=== PATIENT | female | born 1970 | race Caucasian/White ===

== ENCOUNTER 2016-08-10 17:18 | Inpatient (IN) | payer OTHER ==
[~2016-08-10] VITALS: Ht 149.9 cm; Wt 78.4 kg
[~2016-08-10 17:18] MED LIST: NORVASC10 MG; NORVASC10 MG PO
[2016-08-10 17:49] LABS: HEMATOCRIT 40.1 % (36.0-46.0); MCH 29.2 PG (29.0-34.0); MCHC 34.7 G/DL (30.0-36.0); MCV 84.2 FL (83-99); MEAN PLAT.VOLUME 9.2 uM^3 (9.5-12.4); PLATELET COUNT 299 K/uL (156-360); RBC DIS.WIDTH-CV 12.1 % (11.8-14.6); RED BLOOD COUNT 4.76 M/uL (3.80-5.20)
[2016-08-10 18:15] LABS: CHLORIDE 89 mEq/L (99-109); POTASSIUM 3.4 mEq/L (3.7-5.4); SODIUM 129 mEq/L (136-147)
[2016-08-10 18:18] LABS: ANION GAP 25 MEQ/L (2-14)
[2016-08-10 18:20] LABS: GFR ESTIMATE (CALCULATED) > 59 mL/min/
[2016-08-10 18:21] LABS: UREA NITROGEN (BUN) 10 mg/dL (9-23)
[2016-08-10 18:23] LABS: TROP-I INTERPRETATION NEGATIVE; TROPONIN-I 0.02 ng/mL (0.0-0.30)
[2016-08-10 18:25] LABS: GLUCOSE 442 mg/dL (70-99)
[2016-08-10 19:35] LABS: CARBON DIOXIDE (BICARBONATE) 33.7 MEQ/L (20-31)
[2016-08-10 20:50] LABS: TROP-I INTERPRETATION NEGATIVE; TROPONIN-I 0.16 ng/mL (0.0-0.30)
[2016-08-10 21:24] LABS: POINT-OF-CARE METER ID UU13113800
[2016-08-10] MEDS ORDERED: OXYCODONE HCL10 MG PO (21:42)
[2016-08-10] MEDS ORDERED: GABAPENTIN600 MG PO (21:42)
[2016-08-10] MEDS ORDERED: NOVOLOG PE100 UNITS/ SC (21:43)
[2016-08-10 23:33] LABS: POINT-OF-CARE METER ID UU13113800; POINT-OF-CARE USER ID 608261302
[2016-08-11 02:09] LABS: POTASSIUM 3.5 mEq/L (3.7-5.4); SODIUM 131 mEq/L (136-147)
[2016-08-11 02:10] LABS: GLUCOSE 333 mg/dL (70-99)
[2016-08-11 02:12] LABS: ANION GAP 17 MEQ/L (2-14)
[2016-08-11 02:14] LABS: GFR ESTIMATE (CALCULATED) > 59 mL/min/
[2016-08-11 02:15] LABS: UREA NITROGEN (BUN) 9 mg/dL (9-23)
[2016-08-11 02:19] LABS: TROP-I INTERPRETATION NEGATIVE; TROPONIN-I 0.15 ng/mL (0.0-0.30)
[2016-08-11 02:21] LABS: CHLORIDE 99 mEq/L (99-109)
[2016-08-11 06:46] LABS: CHLORIDE 100 mEq/L (99-109); POTASSIUM 3.3 mEq/L (3.7-5.4); SODIUM 132 mEq/L (136-147)
[2016-08-11 06:48] LABS: GLUCOSE 341 mg/dL (70-99)
[2016-08-11 06:49] LABS: ANION GAP 18 MEQ/L (2-14)
[2016-08-11 06:52] LABS: GFR ESTIMATE (CALCULATED) > 59 mL/min/; UREA NITROGEN (BUN) 8 mg/dL (9-23)
[2016-08-11 08:47] LABS: POINT-OF-CARE METER ID UU13113702; POINT-OF-CARE USER ID STWBNM
[2016-08-11 08:52] LABS: TROP-I INTERPRETATION NEGATIVE
[2016-08-11 09:01] LABS: Estimated Average Glucose 346 mg/dL (70-123); HEMOGLOBIN A1c (GLYCOHEMOGLOB) 13.7 % HGB (Below 5.7)
[2016-08-11 12:00] LABS: PROTHROMBIN TIME 10.2 (9.2-11.2); PTT 28.2 (25-32)
[2016-08-11 13:02] LABS: POINT-OF-CARE METER ID UU13113696
[2016-08-11 16:04] LABS: POINT-OF-CARE METER ID UU13113696; POINT-OF-CARE USER ID HMLCJM07
[2016-08-11 20:48] VITALS: BP 120/71
[2016-08-11 21:21] LABS: ANION GAP 11 MEQ/L (2-14); CHLORIDE 101 MEQ/L (99-109); GFR ESTIMATE (CALCULATED) > 59 mL/min/; GLUCOSE 251 mg/dL (70-99); SAMPLE HEMOLYSIS CHECK 2; SAMPLE ICTERIC CHECK 0; SAMPLE LIPEMIA CHECK 1; SODIUM 133 MEQ/L (136-147); UREA NITROGEN (BUN) 6 mg/dL (9-23)
[2016-08-11 23:29] VITALS: BP 131/62
[2016-08-12 03:21] VITALS: BP 123/72
[2016-08-12 06:45] LABS: ANION GAP 6 MEQ/L (2-14); CHLORIDE 105 MEQ/L (99-109); GFR ESTIMATE (CALCULATED) > 59 mL/min/; GLUCOSE 230 mg/dL (70-99); POTASSIUM 3.9 MEQ/L (3.7-5.4); SAMPLE HEMOLYSIS CHECK 0; SAMPLE ICTERIC CHECK 0; SAMPLE LIPEMIA CHECK 0; SODIUM 135 MEQ/L (136-147); UREA NITROGEN (BUN) 5 mg/dL (9-23)
[2016-08-12 08:00] VITALS: BP 131/70
[2016-08-12 12:12] LABS: POINT-OF-CARE METER ID UU13113781
[2016-08-12 12:31] VITALS: BP 131/76
[2016-08-12 16:18] LABS: POINT-OF-CARE METER ID UU13113781
[2016-08-12 16:38] VITALS: BP 139/87
[2016-08-12 20:00] VITALS: BP 136/80
[2016-08-12 23:55] VITALS: BP 99/56
[2016-08-13 03:41] VITALS: BP 121/67
[2016-08-13 07:05] VITALS: BP 144/88
[2016-08-13] MEDS ORDERED: CLOPIDOGREL75 MG PO (08:02)
[2016-08-13] MEDS ORDERED: ATORVASTATIN CA40 MG PO (08:02)
[2016-08-13] MEDS ORDERED: LISINOPRIL10 MG PO (08:02)
[2016-08-13] MEDS ORDERED: LOPRESSOR25 MG PO (08:02)
[2016-08-13] MEDS ORDERED: LEVEMIR FL100 UNIT/1 SC (08:02)
[2016-08-13] MEDS ORDERED: METFORMIN HCL500 M4 PO (08:02)
[2016-08-13] MEDS ORDERED: ASPIR-LOW81 MG PO (08:02)
[2016-08-13 08:54] LABS: ANION GAP 7 MEQ/L (2-14); CHLORIDE 105 MEQ/L (99-109); GFR ESTIMATE (CALCULATED) > 59 mL/min/; GLUCOSE 215 mg/dL (70-99); SAMPLE HEMOLYSIS CHECK 0; SAMPLE ICTERIC CHECK 0; SAMPLE LIPEMIA CHECK 0; SODIUM 138 MEQ/L (136-147); UREA NITROGEN (BUN) 3 mg/dL (9-23)
[2016-08-13 09:01] LABS: POINT-OF-CARE METER ID UU13113781; POINT-OF-CARE USER ID NUTSLF44
[2016-08-13 11:41] LABS: POINT-OF-CARE USER ID NUTSLF44
== END 2016-08-13 12:57 | disposition home or self-care (01) | DRG 247 ==
LOC: EME 17:18 → RME 17:18 → EDOF 08-11 02:14 → 4EAST 08-11 02:14
PROVIDERS: Emergency Medicine; Family Medicine; Internal Medicine; Internal Medicine Cardiovascular Disease; Physician Assistant Medical
DX: I25.10 Atherosclerotic heart disease of native coronary artery without angina pectoris (principal); I16.0 Hypertensive urgency; E87.2 Acidosis; E11.65 Type 2 diabetes mellitus with hyperglycemia; G89.29 Other chronic pain; M54.9 Dorsalgia, unspecified; E78.5 Hyperlipidemia, unspecified; E66.9 Obesity, unspecified; F32.9 Major depressive disorder, single episode, unspecified; E87.6 Hypokalemia; Z87.891 Personal history of nicotine dependence; Z91.19 Patient's noncompliance with other medical treatment and regimen; Z79.4 Long term (current) use of insulin; Z79.891 Long term (current) use of opiate analgesic; Z68.34 Body mass index [BMI] 34.0-34.9, adult
CPT/HCPCS: 71020; 71275; 80048; 80048 91; 82010; 82803; 82948; 83036; 84484; 85027; 85347; 85610; 85730; 93005; 93306; C1725; C1769; C1874; C1887; J1644; J1815; J2250; J2270; J2405; J3010; J3246; J3480; J7030